=== PATIENT | female | born 1980 | race Two or more races ===

== ENCOUNTER 2018-09-06 03:36 | Emergency (ER) | payer OTHER ==
--- NOTE | 2018-09-06 04:04 | ER ---
Nurse's Notes [facility] Name: Adela Sosa Age: 38 yrs Sex: Female : 1980 Arrival Date: 09/06/2018 Time: 03:41 Bed 8 Private MD: Diagnosis: Cough;Acute upper respiratory infection, unspecified;Acute pharyngitis Presentation: 09/06 03:48 Presenting complaint: Patient states: I have had a cough for about 6 days. Transition ed1 of care: patient was not received from another setting of care. Onset of symptoms was August 29, 2018. Risk Assessment: Do you want to hurt yourself or someone else? Patient reports no desire to harm self or others. Initial Sepsis Screen: Does the patient meet any 2 criteria? No. Patient's initial sepsis screen is negative. Does the patient have a suspected source of infection? No. Patient's initial sepsis screen is negative. Care prior to arrival: None. 03:48 Method Of Arrival: Ambulatory ed1 03:48 Acuity: RIVKA 3 ed1 Triage Assessment: 03:49 General: Appears uncomfortable, Behavior is calm, cooperative. Pain: Complains of pain ed1 in throat Pain does not radiate. Pain currently is 5 out of 10 on a pain scale. Quality of pain is described as burning, Pain began 2-3 days ago. Is intermittent, Aggravated by coughing. EENT: Oral mucosa is moist. Throat is reddened. Neuro: Level of Consciousness is awake, alert, obeys commands, Oriented to person, place, time, situation. Cardiovascular: Denies chest pain, Heart tones S1 S2 present. Respiratory: Reports cough that is non-productive, hacking, persistent Airway is patent Respiratory effort is even, unlabored, Respiratory pattern is regular, symmetrical, Breath sounds are clear bilaterally. Onset: The symptoms/episode began/occurred about 6 days ago, Denies shortness of breath. GI: Abdomen is flat, non-distended, Bowel sounds present X 4 quads. Abd is soft and non tender X 4 quads. Patient currently denies diarrhea, nausea, vomiting. : No signs and/or symptoms were reported regarding the genitourinary system. Derm: Skin is intact, is healthy with good turgor, Skin is dry, Skin is normal, Skin temperature is warm. Musculoskeletal: Circulation, motion, and sensation intact. 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 - Social history:: Smoking status: Patient/guardian denies using tobacco. - Ebola Screening: : Patient negative for fever greater than or equal to 101.5 degrees Fahrenheit, and additional compatible Ebola Virus Disease symptoms Patient denies exposure to infectious person Patient denies travel to an Ebola-affected area in the 21 days before illness onset No symptoms or risks identified at this time. - Family history:: not pertinent. Screenin:53 Abuse screen: Denies threats or abuse. Denies injuries from another. Nutritional ed1 screening: No deficits noted. Tuberculosis screening: No symptoms or risk factors identified. Fall Risk None identified. Assessment: 03:53 General: See triage assessment. ed1 04:29 Reassessment: Patient appears in no apparent distress at this time. No changes from ed1 previously documented assessment. Patient and/or family updated on plan of care and expected duration. Pain level reassessed. Patient is alert, oriented x 3, equal unlabored respirations, skin warm/dry/pink. Vital Signs: 03:49 BP 116 / 96; Pulse 69; Resp 18; Temp 97.9(O); Pulse Ox 100% on R/A; Weight 46.72 kg; ed1 Height 5 ft. 3 in. (160.02 cm); Pain 5/10; 04:29 BP 114 / 76; Pulse 70; Resp 18; Pulse Ox 100% on R/A; Pain 5/10; ed1 03:49 Body Mass Index 18.25 (46.72 kg, 160.02 cm) ed1 ED Course: 03:41 Patient arrived in ED. es 03:44 Linden Castaneda MD is Attending Physician. smita 03:48 Yesenia Stark, FARHAD is Primary Nurse. ed1 03:49 Triage completed. ed1 03:49 Arm band placed on. ed1 03:53 Patient has correct armband on for positive identification. Placed in gown. Bed in low ed1 position. Call light in reach. Side rails up X 1. Adult w/ patient. Pulse ox on. NIBP on. Warm blanket given. 04:29 No provider procedures requiring assistance completed. Patient did not have IV access ed1 during this emergency room visit. Administered Medications: 04:05 Drug: Tussionex Pennkinetic ER 5 ml Route: PO; ed1 04:28 Follow up: Response: No adverse reaction ed1 04:05 Drug: Zithromax 500 mg Route: PO; ed1 04:28 Follow up: Response: No adverse reaction ed1 Outcome: 04:04 Discharge ordered by MD. ordoñez 04:29 Discharged to home ambulatory. ed1 04:29 Condition: good 04:29 Discharge instructions given to patient, Instructed on discharge instructions, follow up and referral plans. medication usage, Demonstrated understanding of instructions, follow-up care, medications, Prescriptions given X 2. 04:30 Patient left the ED. ed1 Signatures: Linden Castaneda MD MD cha Salyer, Edna es Riggs, Erika RN RN ed1
--- NOTE | 2018-09-06 04:04 | EDPHYS ---
Physician Documentation [facility] Name: Adela Sosa Age: 38 yrs Sex: Female : 1980 Arrival Date: 09/06/2018 Time: 03:41 Bed 8 Private MD: ED Physician Linden Castaneda HPI: 09/06 04:00 This 38 yrs old Female presents to ER via Ambulatory with complaints of smita Non-Productive Cough, Painful Cough. 04:00 The patient or guardian reports cough, described as mild. 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 - Social history:: Smoking status: Patient/guardian denies using tobacco. - Ebola Screening: : Patient negative for fever greater than or equal to 101.5 degrees Fahrenheit, and additional compatible Ebola Virus Disease symptoms Patient denies exposure to infectious person Patient denies travel to an Ebola-affected area in the 21 days before illness onset No symptoms or risks identified at this time. - Family history:: not pertinent. ROS: 04:00 Eyes: Negative for injury, pain, redness, and discharge. smita 04:00 ENT: Negative for injury, pain, and discharge, Neck: Negative for injury, pain, and swelling, Cardiovascular: Negative for chest pain, palpitations, and edema, Abdomen/GI: Negative for abdominal pain, nausea, vomiting, diarrhea, and constipation, Back: Negative for injury and pain, : Negative for injury, bleeding, discharge, and swelling, MS/Extremity: Negative for injury and deformity, Skin: Negative for injury, rash, and discoloration, Neuro: Negative for headache, weakness, numbness, tingling, and seizure. 04:00 Constitutional: Positive for 04:00 ENT: Positive for difficulty swallowing, sinus congestion. 04:00 Respiratory: Positive for cough. Exam: 04:00 Constitutional: This is a well developed, well nourished patient who is awake, alert, smita and in no acute distress. Head/Face: Normocephalic, atraumatic. Eyes: Pupils equal round and reactive to light, extra-ocular motions intact. Lids and lashes normal. Conjunctiva and sclera are non-icteric and not injected. Cornea within normal limits. Periorbital areas with no swelling, redness, or edema. Neck: Trachea midline, no thyromegaly or masses palpated, and no cervical lymphadenopathy. Supple, full range of motion without nuchal rigidity, or vertebral point tenderness. No Meningismus. Chest/axilla: Normal chest wall appearance and motion. Nontender with no deformity. No lesions are appreciated. Cardiovascular: Regular rate and rhythm with a normal S1 and S2. No gallops, murmurs, or rubs. Normal PMI, no JVD. No pulse deficits. Respiratory: Lungs have equal breath sounds bilaterally, clear to auscultation and percussion. No rales, rhonchi or wheezes noted. No increased work of breathing, no retractions or nasal flaring. Abdomen/GI: Soft, non-tender, with normal bowel sounds. No distension or tympany. No guarding or rebound. No evidence of tenderness throughout. Back: No spinal tenderness. No costovertebral tenderness. Full range of motion. Skin: Warm, dry with normal turgor. Normal color with no rashes, no lesions, and no evidence of cellulitis. MS/ Extremity: Pulses equal, no cyanosis. Neurovascular intact. Full, normal range of motion. Neuro: Awake and alert, GCS 15, oriented to person, place, time, and situation. Cranial nerves II-XII grossly intact. Motor strength 5/5 in all extremities. Sensory grossly intact. Cerebellar exam normal. Normal gait. Psych: Awake, alert, with orientation to person, place and time. Behavior, mood, and affect are within normal limits. 04:00 ENT: Posterior pharynx: Airway: normal, no evidence of obstruction, Tonsils: with erythema, Uvula: normal, midline, swelling, is not appreciated, erythema, that is mild, exudate, is not appreciated, peritonsillar mass, is not appreciated. Vital Signs: 03:49 BP 116 / 96; Pulse 69; Resp 18; Temp 97.9(O); Pulse Ox 100% on R/A; Weight 46.72 kg; ed1 Height 5 ft. 3 in. (160.02 cm); Pain 5/10; 04:29 BP 114 / 76; Pulse 70; Resp 18; Pulse Ox 100% on R/A; Pain 5/10; ed1 03:49 Body Mass Index 18.25 (46.72 kg, 160.02 cm) ed1 MDM: 03:44 Patient medically screened. [facility] 04:00 Data reviewed: vital signs, nurses notes. [facility] Administered Medications: 04:05 Drug: Tussionex Pennkinetic ER 5 ml Route: PO; ed1 04:28 Follow up: Response: No adverse reaction ed1 04:05 Drug: Zithromax 500 mg Route: PO; ed1 04:28 Follow up: Response: No adverse reaction ed1 Disposition: 09/06/18 04:04 Discharged to Home. Impression: Cough, Acute upper respiratory infection, unspecified, Acute pharyngitis. - Condition is Stable. - Discharge Instructions: Cool Mist Vaporizer, Upper Respiratory Infection, Adult, [id number], Cough, Adult, [id number], Cough, Adult. - Prescriptions for Zithromax Z- Adán 250 mg Oral Tablet - take 1 tablet by ORAL route as directed for 5 days Day 1 - take two (2) tablets one time. Day 2, 3, 4 , 5 take one (1) tablet once daily.; 6 tablet. Guaifenesin AC 10- 100 mg/5 mL Oral Liquid - take 10 milliliters by ORAL route every 4 hours As needed; 160 milliliter. - Medication Reconciliation Form, Thank You Letter, Antibiotic Education, Prescription Opioid Use form. - Follow up: Private Physician; When: 2 - 3 days; Reason: Recheck today's complaints, Continuance of care, Re-evaluation by your physician. - Problem is new. - Symptoms have improved. Signatures: Linden Castaneda MD MD cha Riggs, Erika RN RN ed1 Corrections: (The following items were deleted from the chart) 04:05 04:04 09/06/2018 04:04 Discharged to Home. Impression: Cough; Acute upper respiratory smita infection, unspecified. Condition is Stable. Forms are Medication Reconciliation Form, Thank You Letter, Antibiotic Education, Prescription Opioid Use. Follow up: Private Physician; When: 2 - 3 days; Reason: Recheck today's complaints, Continuance of care, Re-evaluation by your physician. Problem is new. Symptoms have improved. [facility] 04:30 04:05 09/06/2018 04:04 Discharged to Home. Impression: Cough; Acute upper respiratory ed1 infection, unspecified; Acute pharyngitis. Condition is Stable. Discharge Instructions: Cool Mist Vaporizer, Upper Respiratory Infection, Adult, Zgmq-td-Diom, Cough, Adult, [id number]-[id number], Cough, Adult. Prescriptions for Zithromax Z-Adán 250 mg Oral Tablet - take 1 tablet by ORAL route as directed for 5 days Day 1 - take two (2) tablets one time. Day 2, 3, 4 , 5 take one (1) tablet once daily.; 6 tablet, Guaifenesin AC 10-100 mg/5 mL Oral Liquid - take 10 milliliters by ORAL route every 4 hours As needed; 160 milliliter. and Forms are Medication Reconciliation Form, Thank You Letter, Antibiotic Education, Prescription Opioid Use. Follow up: Private Physician; When: 2 - 3 days; Reason: Recheck today's complaints, Continuance of care, Re-evaluation by your physician. Problem is new. Symptoms have improved. [facility]
[2018-09-06] MEDS ORDERED: HYDROCODONE/CHLORPHEN 5 ML/OSYR ONE (04:12)
[2018-09-06] MEDS ORDERED: AZITHROMYCIN 250 MG TAB ONE (04:12)
== END 2018-09-06 04:30 | disposition home or self-care (01) ==
LOC: ER 03:36
DX: J06.9 Acute upper respiratory infection, unspecified (principal); J02.9 Acute pharyngitis, unspecified
CPT/HCPCS: 99283

== ENCOUNTER 2019-08-02 03:48 | Emergency (ER) | payer OTHER ==
[2019-08-02] MEDS ORDERED: KETOROLAC 30 MG/ML INJ ONE (04:34)
[2019-08-02 05:08] LABS: Basophils % 0.5 % (0-1.3); Hematocrit 41.2 % (36.0-45.0); Lymphocytes % 41.8 % (15.3-44.8); MPV 10.7 fL (7.6-11.3); RBC Red Blood Cell Count 4.46 M/uL (3.86-4.86)
[2019-08-02 05:13] LABS: Protime INR 0.91
[2019-08-02 05:22] LABS: ALT/SGPT 25 U/L (12-78); AST/SGOT 24 U/L (15-37); Albumin 3.9 g/dL (3.4-5.0); Alkaline Phosphatase 41 U/L (45-117); BUN Blood Urea Nitrogen 13 mg/dL (7-18); Bicarbonate 30 mmol/L (21-32); Bilirubin Direct 0.1 mg/dL (0-0.2); Bilirubin Total 0.3 mg/dL (0.2-1.0); Glucose Level 98 mg/dL (74-106); Magnesium 2.4 mg/dL (1.8-2.4); NT PRO-BNP 47 pg/mL (<125); Potassium 4.7 mmol/L (3.5-5.1); Protein, Total 7.5 g/dL (6.4-8.2); Sodium Level 141 mmol/L (136-145); Troponin (Emerg Dept Use Only) < 0.02 ng/mL (0.0-0.045)
--- NOTE | 2019-08-02 06:06 | ER ---
Nurse's Notes [facility] Name: Adela Sosa Age: 39 yrs Sex: Female : 1980 Arrival Date: 08/02/2019 Time: 03:51 Bed 8 Private MD: Diagnosis: Muscle spasm of back;Other muscle spasm;Strain of muscle and tendon of thorax Presentation: 08/02 04:05 Presenting complaint: Patient states: I started to have shoulder pain today and rr5 headache, for my chest pain it started 2 days ago and for my neck and back pain it started last week. I am taking ibuprofen but it did not relieved the pain. 04:05 Transition of care: patient was not received from another setting of care. Onset of rr5 symptoms was August 02, 2019. Risk Assessment: Do you want to hurt yourself or someone else? Patient reports no desire to harm self or others. Initial Sepsis Screen: Does the patient meet any 2 criteria? No. Patient's initial sepsis screen is negative. Does the patient have a suspected source of infection? No. Patient's initial sepsis screen is negative. Care prior to arrival: Medication(s) given: Motrin. 04:05 Method Of Arrival: Ambulatory rr5 04:05 Acuity: RIVKA 3 rr5 Triage Assessment: 04:05 Headache History: The patient has had previous headaches and this one is more severe rr5 than previous episodes. Pain: Pain began gradually, Also complains of no other associated symptoms. 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 - Social history:: Smoking status: Patient/guardian denies using tobacco, Patient uses alcohol, occasionally. Patient/guardian denies using street drugs. - Ebola Screening: : Patient negative for fever greater than or equal to 101.5 degrees Fahrenheit, and additional compatible Ebola Virus Disease symptoms Patient denies exposure to infectious person Patient denies travel to an Ebola-affected area in the 21 days before illness onset. Screenin:18 Abuse screen: Denies threats or abuse. Denies injuries from another. Nutritional rr5 screening: No deficits noted. Tuberculosis screening: No symptoms or risk factors identified. Fall Risk IV access (20 points). Total Bhatti Fall Scale indicates No Risk (0-24 pts). Assessment: 04:05 General: Appears in no apparent distress. comfortable, Behavior is calm, cooperative, rr5 appropriate for age. 04:05 Pain: Complains of pain in head, neck, shoulder, chest, back Pain does not radiate. rr5 Pain currently is 8 out of 10 on a pain scale. Neuro: Level of Consciousness is awake, alert, obeys commands, Oriented to person, place, time, situation, Appropriate for age Reports headache in entire. Cardiovascular: Reports chest pain, Capillary refill < 3 seconds Patient's skin is warm and dry. Respiratory: Airway is patent Respiratory effort is even, unlabored, Respiratory pattern is regular, symmetrical. GI: No signs and/or symptoms were reported involving the gastrointestinal system. : Denies burning with urination, pain. EENT: No signs and/or symptoms were reported regarding the EENT system. Derm: Skin is intact, is healthy with good turgor, Skin temperature is warm. Musculoskeletal: Capillary refill < 3 seconds, Reports pain in neck, shoulrder, chest, back. 05:00 Reassessment: Patient appears in no apparent distress at this time. Patient is alert, rr5 oriented x 3, equal unlabored respirations, skin warm/dry/pink. awaiting for result. 05:58 Reassessment: Patient appears in no apparent distress at this time. Patient and/or rr5 family updated on plan of care and expected duration. Pain level reassessed. Patient is alert, oriented x 3, equal unlabored respirations, skin warm/dry/pink. resting on bed, breathing spontaneously at room air. vitally stable. Patient states symptoms have improved. 05:58 Pain: Pain currently is 6 out of 10 on a pain scale. rr5 06:12 Reassessment: Patient appears in no apparent distress at this time. Patient is alert, rr5 oriented x 3, equal unlabored respirations, skin warm/dry/pink. discharge instruction given and explained without complaints made,verbalized understanding. Vital Signs: 04:05 BP 108 / 78; Pulse 71; Resp 16; Temp 97.6; Pulse Ox 100% ; Weight 46.72 kg; Height 5 rr5 ft. 3 in. (160.02 cm); Pain 8/10; 05:00 BP 111 / 62; Pulse 66; Resp 18; Pulse Ox 98% ; rr5 05:59 BP 109 / 68; Pulse 60; Resp 17; Pulse Ox 99% ; Pain 6/10; rr5 06:12 BP 105 / 76; Pulse 66; Resp 19; Temp 97.6; Pulse Ox 99% ; rr5 04:05 Body Mass Index 18.25 (46.72 kg, 160.02 cm) rr5 ED Course: 03:51 Patient arrived in ED. es 03:51 Sd Gonzalez, RN is Primary Nurse. rr5 04:05 Arm band placed on. rr5 04:08 Patient has correct armband on for positive identification. Placed in gown. Bed in low rr5 position. Call light in reach. credit assessment analyst on. Pulse ox on. NIBP on. 04:13 Triage completed. rr5 04:14 Emmett Yun MD is Attending Physician. tw4 04:30 XRAY Chest (1 view) In Process Unspecified. EDMS 04:38 Inserted saline lock: 22 gauge in right antecubital area, using aseptic technique. rr5 Blood collected. 06:13 No provider procedures requiring assistance completed. IV discontinued, intact, rr5 bleeding controlled, No redness/swelling at site. Pressure dressing applied. Administered Medications: 04:40 Drug: TORadol 30 mg Route: IVP; Site: right antecubital; rr5 05:10 Follow up: Response: Pain is decreased rr5 Outcome: 06:05 Discharge ordered by . tw4 06:13 Discharged to home ambulatory, with family. rr5 06:13 Condition: stable 06:13 Discharge instructions given to patient, Instructed on discharge instructions, follow up and referral plans. medication usage, Demonstrated understanding of instructions, follow-up care, medications, Prescriptions given X 1. 06:14 Patient left the ED. rr5 Signatures: Dispatcher [employer]CO Jenny June Terrence, MD MD tw4 Sd Gonzalez, RN RN rr5
--- NOTE | 2019-08-02 06:06 | EDPHYS ---
Physician Documentation [facility] Name: Adela Sosa Age: 39 yrs Sex: Female : 1980 Arrival Date: 08/02/2019 Time: 03:51 Bed 8 Private MD: ED Physician Emmett Yun HPI: 08/02 05:51 This 39 yrs old Female presents to ER via Ambulatory with complaints of Headache, Neck tw4 Pain, <24hrs Old, Shoulder Pain, Shortness Of Breath, Chest Pain. 05:51 The patient presents with pain that is acute. The symptoms are located in the low back. tw4 Onset: The symptoms/episode began/occurred today. The pain does not radiate. Severity of symptoms: At their worst the symptoms were mild, in the emergency department the symptoms are unchanged. The patient has not experienced similar symptoms in the past. 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 - Social history:: Smoking status: Patient/guardian denies using tobacco, Patient uses alcohol, occasionally. Patient/guardian denies using street drugs. - Ebola Screening: : Patient negative for fever greater than or equal to 101.5 degrees Fahrenheit, and additional compatible Ebola Virus Disease symptoms Patient denies exposure to infectious person Patient denies travel to an Ebola-affected area in the 21 days before illness onset. ROS: 05:51 Constitutional: Negative for fever, chills, and weight loss, Eyes: Negative for injury, tw4 pain, redness, and discharge, Respiratory: Negative for shortness of breath, cough, wheezing, and pleuritic chest pain, Abdomen/GI: Negative for abdominal pain, nausea, vomiting, diarrhea, and constipation, MS/Extremity: Negative for injury and deformity, Skin: Negative for injury, rash, and discoloration, Neuro: Negative for headache, weakness, numbness, tingling, and seizure. 05:51 Cardiovascular: Positive for chest pain, Negative for edema, orthopnea, palpitations, paroxysmal nocturnal dyspnea. 05:51 Back: Positive for Exam: 05:51 Constitutional: This is a well developed, well nourished patient who is awake, alert, tw4 and in no acute distress. Head/Face: Normocephalic, atraumatic. Eyes: Pupils equal round and reactive to light, extra-ocular motions intact. Lids and lashes normal. Conjunctiva and sclera are non-icteric and not injected. Cornea within normal limits. Periorbital areas with no swelling, redness, or edema. 05:51 Cardiovascular: Regular rate and rhythm with a normal S1 and S2. No gallops, murmurs, or rubs. Normal PMI, no JVD. No pulse deficits. Respiratory: Lungs have equal breath sounds bilaterally, clear to auscultation and percussion. No rales, rhonchi or wheezes noted. No increased work of breathing, no retractions or nasal flaring. Abdomen/GI: Soft, non-tender, with normal bowel sounds. No distension or tympany. No guarding or rebound. No evidence of tenderness throughout. 05:51 Chest/axilla: Inspection: normal, Palpation: tenderness, that is moderate, that partially reproduces the patient's complaints. 05:51 Back: pain, that is mild, of the left scapular area and right scapular area, ROM is decreased. Vital Signs: 04:05 BP 108 / 78; Pulse 71; Resp 16; Temp 97.6; Pulse Ox 100% ; Weight 46.72 kg; Height 5 rr5 ft. 3 in. (160.02 cm); Pain 8/10; 05:00 BP 111 / 62; Pulse 66; Resp 18; Pulse Ox 98% ; rr5 05:59 BP 109 / 68; Pulse 60; Resp 17; Pulse Ox 99% ; Pain 6/10; rr5 06:12 BP 105 / 76; Pulse 66; Resp 19; Temp 97.6; Pulse Ox 99% ; rr5 04:05 Body Mass Index 18.25 (46.72 kg, 160.02 cm) rr5 MDM: 04:14 Patient medically screened. 08/02 04:09 Order name: Basic Metabolic Panel; Complete Time: 05:55 bb 08/02 05:55 Interpretation: Normal except: CL 108; GFR 72. 08/02 04:09 Order name: CBC with Diff; Complete Time: 05:55 08/02 05:55 Interpretation: Within normal limits. tw08/02 04:09 Order name: LFT's; Complete Time: 05:55 08/02 05:55 Interpretation: Normal except: ALK 41; GLOB 3.6. tw4 08/02 04:09 Order name: Magnesium; Complete Time: 05:55 08/02 05:55 Interpretation: Within normal limits: MG 2.4. 08/02 04:09 Order name: NT PRO-BNP; Complete Time: 05:55 08/02 05:55 Interpretation: Within normal limits: NT PRO-BNP 47. 08/02 04:09 Order name: PT-INR 08/02 04:09 Order name: Troponin (emerg Dept Use Only); Complete Time: 05:55 08/02 05:55 Interpretation: TROPED < 0.02. tw08/02 04:09 Order name: XRAY Chest (1 view) 08/02 04:09 Order name: EKG; Complete Time: 04:11 08/02 04:09 Order name: Cardiac monitoring; Complete Time: 04:19 08/02 04:09 Order name: EKG - Nurse/Tech; Complete Time: 04:19 08/02 04:09 Order name: IV Saline Lock; Complete Time: 04:41 08/02 04:09 Order name: Labs collected and sent; Complete Time: 04:41 08/02 04:09 Order name: O2 Per Protocol; Complete Time: 04:19 08/02 04:09 Order name: O2 Sat Monitoring; Complete Time: 04:19 bb EC:51 Rate is 67 beats/min. Rhythm is regular. QRS [place] is Normal. [place] interval is normal. QRS tw4 interval is normal. QT interval is normal. No Q waves. No ST changes noted. Clinical impression: Normal ECG. Interpreted by me. Reviewed by me. Administered Medications: 04:40 Drug: TORadol 30 mg Route: IVP; Site: right antecubital; rr5 05:10 Follow up: Response: Pain is decreased rr5 Disposition: 08/02/19 06:05 Discharged to Home. Impression: Muscle spasm of back, Other muscle spasm, Strain of muscle and tendon of thorax. - Condition is Stable. - Discharge Instructions: Chest Wall Pain, Muscle Cramps and Spasms. - Prescriptions for Ibuprofen 800 mg Oral Tablet - take 1 tablet by ORAL route every 8 hours As needed take with food; 30 tablet. - Medication Reconciliation Form, Thank You Letter, Antibiotic Education, Prescription Opioid Use form. - Follow up: Private Physician; When: Upon discharge from the Emergency Department; Reason: Recheck today's complaints, Continuance of care. - Problem is new. - Symptoms have improved. Signatures: Dispatcher [employer] Tammy Avila RN RN Emmett Ramirez MD MD tw4 Sd Gonzalez RN RN rr5 Corrections: (The following items were deleted from the chart) 06:14 06:05 08/02/2019 06:05 Discharged to Home. Impression: Muscle spasm of back; Other rr5 muscle spasm; Strain of muscle and tendon of thorax. Condition is Stable. Forms are Medication Reconciliation Form, Thank You Letter, Antibiotic Education, Prescription Opioid Use. Follow up: Private Physician; When: Upon discharge from the Emergency Department; Reason: Recheck today's complaints, Continuance of care. Problem is new. Symptoms have improved. tw4
[2019-08-02 06:19] VITALS: TEMP 97.6
[2019-08-02 06:22] VITALS: O2SAT 99
[2019-08-02 06:23] VITALS: BP 105/76
--- NOTE | 2019-08-02 09:32 | RAD REPORT ---
EXAM DESCRIPTION: RAD - Chest Single View - 08/02/2019 4:31 am CLINICAL HISTORY: Chest pain, shoulder pain COMPARISON: May 2015 TECHNIQUE: AP portable chest image was obtained 0426 hours . FINDINGS: No peripheral mass or consolidation. Lung markings are similar to comparison. Heart and va sculature are normal. No measurable pleural effusion and no pneumothorax. No acute bony abnormality s een. No acute aortic findings suspected. IMPRESSION: No acute cardiopulmonary process.
--- NOTE | 2019-08-03 11:46 | EKG ---
Test Date: 2019-08-02 Test Time: 04:07:05 Admissions [address] Attendant: RR MEASUREMENT RESULTS: Intervals: Rate: 67 OR: 142 QRSD: 84 QT: 418 QTc: 441 [place]: P: 18 OR: 142 QRS: 70 T: 29 INTERPRETIVE STATEMENTS: Normal sinus rhythm Normal ECG No previous ECG available for comparison Electronically Signed On 08-03-19 11:42:17 BARK GRINDER by Faisal Ronquillo
== END 2019-08-02 06:14 | disposition home or self-care (01) ==
LOC: ER 03:48
DX: M62.830 Muscle spasm of back (principal); S29.019A Strain of muscle and tendon of unspecified wall of thorax, initial encounter; M62.838 Other muscle spasm; X58.XXXA Exposure to other specified factors, initial encounter; Y93.9 Activity, unspecified; Y92.9 Unspecified place or not applicable; Z98.82 Breast implant status
CPT/HCPCS: 36415; 71045; 80048; 80076; 83735; 83880; 84484; 85025; 85610; 93005; 96374; 99284

== ENCOUNTER 2020-01-31 02:35 | Emergency (ER) | payer OTHER ==
--- NOTE | 2020-01-31 03:26 | EDPHYS ---
Physician Documentation [facility] Name: Adela Sosa Age: 40 yrs Sex: Female : 1980 Arrival Date: 01/31/2020 Time: 02:38 Bed 7 Private MD: ED Physician Brodie Valdez HPI: 01/30 03:26 This 40 yrs old Female presents to ER via Ambulatory with complaints of Laceration - mh7 Finger. 03:26 The patient or guardian reports a laceration, clean, 2 cm(s). The complaints affect the mh7 left thumb-dorsal aspect. Context: The problem was sustained at home, resulted from a penetrating injury, by a knife, while cutting fruit. Onset: The symptoms/episode began/occurred just prior to arrival, today. Modifying factors: The symptoms are alleviated by nothing, the symptoms are aggravated by nothing. Associated signs and symptoms: Pertinent negatives: cyanosis distally, decreased sensation distally, fever, nausea, numbness distally, tingling distally, vomiting. Severity of symptoms: At their worst the symptoms were mild, earlier today, in the emergency department the symptoms are unchanged. Historical: - Allergies: 03:15 No Known Allergies; sg - PMHx: 03:15 None; sg - PSHx: 03:15 breast augmentation; rhinoplasty; sg - Immunization history:: Adult Immunizations up to date, Last tetanus immunization: < 5 years ago. - Social history:: Smoking status: Patient denies any tobacco usage or history of. ROS: 03:26 Constitutional: Negative for fever, chills, and weight loss, Eyes: Negative for injury, mh7 pain, redness, and discharge, ENT: Negative for injury, pain, and discharge, Neck: Negative for injury, pain, and swelling, Cardiovascular: Negative for chest pain, palpitations, and edema, Respiratory: Negative for shortness of breath, cough, wheezing, and pleuritic chest pain, Abdomen/GI: Negative for abdominal pain, nausea, vomiting, diarrhea, and constipation, Back: Negative for injury and pain, : Negative for injury, bleeding, discharge, and swelling, Neuro: Negative for headache, weakness, numbness, tingling, and seizure, Psych: Negative for depression, anxiety, suicide ideation, homicidal ideation, and hallucinations, Allergy/Immunology: Negative for hives, rash, and allergies, Endocrine: Negative for neck swelling, polydipsia, polyuria, polyphagia, and marked weight changes, Hematologic/Lymphatic: Negative for swollen nodes, abnormal bleeding, and unusual bruising. Exam: 03:26 Constitutional: This is a well developed, well nourished patient who is awake, alert, mh7 and in no acute distress. Head/Face: Normocephalic, atraumatic. Neck: Trachea midline, no thyromegaly or masses palpated, and no cervical lymphadenopathy. Supple, full range of motion without nuchal rigidity, or vertebral point tenderness. No Meningismus. Chest/axilla: Normal chest wall appearance and motion. Nontender with no deformity. No lesions are appreciated. Cardiovascular: Regular rate and rhythm with a normal S1 and S2. No gallops, murmurs, or rubs. Normal PMI, no JVD. No pulse deficits. Respiratory: Lungs have equal breath sounds bilaterally, clear to auscultation and percussion. No rales, rhonchi or wheezes noted. No increased work of breathing, no retractions or nasal flaring. Abdomen/GI: Soft, non-tender, with normal bowel sounds. No distension or tympany. No guarding or rebound. No evidence of tenderness throughout. 03:26 Neuro: Awake and alert, GCS 15, oriented to person, place, time, and situation. Cranial nerves II-XII grossly intact. Motor strength 5/5 in all extremities. Sensory grossly intact. Cerebellar exam normal. Normal gait. Psych: Awake, alert, with orientation to person, place and time. Behavior, mood, and affect are within normal limits. 03:26 Musculoskeletal/extremity: Extremities: noted in the dorasl left thumb: laceration, ROM: intact in all extremities, Circulation is intact in all extremities. Sensation intact. Compartment Syndrome exam of affected extremity: is normal. no pain, no numbness, no tingling, no sensation deficit, no palor, no weak pulses, Tendon exam: specific tendon testing normal through active and passive range of motion 03:26 Skin: injury, laceration(s), the wound is approximately 2 cm(s), with a depth of 0.1 cm(s), of the left thumb-dorsal aspect, that can be described as clean, no foreign body, linear, superficial. Vital Signs: 03:15 BP 110 / 54; Pulse 77; Resp 16; Temp 98.4; Pulse Ox 100% on R/A; rv MDM: 03:18 Patient medically screened. 7 03:23 Differential diagnosis: contusion, abrasion, laceration. Data reviewed: vital signs, 7 nurses notes. Administered Medications: No medications were administered Disposition: 01/31/20 03:25 Discharged to Home. Impression: Left Thumb Laceration. - Condition is Stable. - Discharge Instructions: Laceration Care, Adult, [id number]. - Medication Reconciliation Form, Thank You Letter, Antibiotic Education, Prescription Opioid Use form. - Follow up: Private Physician; When: 1 - 2 days; Reason: Worsening of condition, Recheck today's complaints, Re-evaluation by your physician. - Problem is new. - Symptoms have improved. Signatures: Reza Luis RN RN sg Brodie Valdez MD MD [facility] Corrections: (The following items were deleted from the chart) 03:37 03:25 01/31/2020 03:25 Discharged to Home. Impression: Left Thumb Laceration. Condition sg is Stable. Forms are Medication Reconciliation Form, Thank You Letter, Antibiotic Education, Prescription Opioid Use. Follow up: Private Physician; When: 1 - 2 days; Reason: Worsening of condition, Recheck today's complaints, Re-evaluation by your physician. Problem is new. Symptoms have improved. [facility]
--- NOTE | 2020-01-31 03:26 | ER ---
Nurse's Notes [facility] Name: Adela Sosa Age: 40 yrs Sex: Female : 1980 Arrival Date: 01/31/2020 Time: 02:38 Bed 7 Private MD: Diagnosis: Left Thumb Laceration Presentation: 01/30 03:10 Chief complaint: Patient states: Was using a meat juan when I smashed or cut my left sg thumb, pt reports using herbal remedy to control bleeding and a pressure dressing has been applied at this time. Coronavirus screen: Proceed with normal triage. Ebola Screen: Patient negative for fever greater than or equal to 101.5 degrees Fahrenheit, and additional compatible Ebola Virus Disease symptoms Patient denies exposure to infectious person. Patient denies travel to an Ebola-affected area in the 21 days before illness onset. No symptoms or risks identified at this time. Initial Sepsis Screen: Does the patient meet any 2 criteria? No. Patient's initial sepsis screen is negative. Does the patient have a suspected source of infection? No. Patient's initial sepsis screen is negative. Risk Assessment: Do you want to hurt yourself or someone else? Patient reports no desire to harm self or others. Onset of symptoms was January 31, 2020. Care prior to arrival: None. Transition of care: patient was not received from another setting of care. 03:10 Method Of Arrival: Ambulatory sg 03:10 Acuity: RIVKA 4 sg Historical: - Allergies: 03:15 No Known Allergies; sg - PMHx: 03:15 None; sg - PSHx: 03:15 breast augmentation; rhinoplasty; sg - Immunization history:: Adult Immunizations up to date, Last tetanus immunization: < 5 years ago. - Social history:: Smoking status: Patient denies any tobacco usage or history of. Vital Signs: 03:15 BP 110 / 54; Pulse 77; Resp 16; Temp 98.4; Pulse Ox 100% on R/A; rv ED Course: 02:38 Patient arrived in ED. ds1 03:02 Brodie Valdez MD is Attending Physician. mh7 03:08 Eusebio Keenan RN is Primary Nurse. rv 03:10 Arm band placed on. sg 03:15 Triage completed. sg Administered Medications: No medications were administered Outcome: 03:25 Discharge ordered by MD. morales 03:37 Patient left the ED. sg Signatures: Reza Luis RN RN sg Breann Joyce ds1 Eusebio Keenan RN RN rv Holmes, Maurice, MD MD mh7
[2020-01-31 03:57] VITALS: BP 110/54; TEMP 98.4; O2SAT 100
== END 2020-01-31 03:37 | disposition home or self-care (01) ==
LOC: ER 02:35
DX: S61.012A Laceration without foreign body of left thumb without damage to nail, initial encounter (principal); W26.0XXA Contact with knife, initial encounter; Y93.G1 Activity, food preparation and clean up; Y92.009 Unspecified place in unspecified non-institutional (private) residence as the place of occurrence of the external cause; Z98.82 Breast implant status
CPT/HCPCS: 99281

== ENCOUNTER 2022-05-21 22:01 | Emergency (ER) | payer OTHER ==
[2022-05-21] MEDS ORDERED: AMOX/K CLAV 875 MG TAB ONE (22:15)
[2022-05-21] MEDS ORDERED: TETANUS & DIPHTHERIA TOX,ADULT 0.5 ML VIAL ONE (22:15)
--- NOTE | 2022-05-21 22:23 | ER ---
Nurse's Notes [facility] Name: Adela Sosa Age: 42 yrs Sex: Female : 1980 Arrival Date: 05/21/2022 Time: 22:03 Bed 12 Private MD: Diagnosis: bitten by raccoon Presentation: 05/21 22:12 Chief complaint: Bit by raccoon in right index finger. Coronavirus screen: At this hb time, the client does not indicate any symptoms associated with coronavirus-19. Ebola Screen: No symptoms or risks identified at this time. Initial Sepsis Screen: Does the patient meet any 2 criteria? No. Patient's initial sepsis screen is negative. Does the patient have a suspected source of infection? No. Patient's initial sepsis screen is negative. Risk Assessment: Do you want to hurt yourself or someone else? Patient reports no desire to harm self or others. Onset of symptoms was May 21, 2022. 22:12 Method Of Arrival: Ambulatory hb 22:12 Acuity: RIVKA 4 hb Triage Assessment: 22:13 Bite description: bite sustained to palmar aspect of distal phalanx of right index hb finger by a raccoon animal information: vaccination(s) is unknown. General: Appears in no apparent distress. Behavior is calm, cooperative. Pain: Pain currently is 4 out of 10 on a pain scale. Neuro: Level of Consciousness is awake, alert, obeys commands, Oriented to person, place, time, situation. Cardiovascular: Patient's skin is warm and dry. Respiratory: Respiratory effort is even, unlabored, Respiratory pattern is regular, symmetrical. Historical: - Allergies: 22:13 No Known Allergies; hb - Home Meds: 22:13 None [Active]; hb - PMHx: 22:13 None; hb - PSHx: 22:13 None; hb - Immunization history:: Adult Immunizations up to date, Last tetanus immunization: unknown. - Social history:: Smoking status: Patient denies any tobacco usage or history of. Screenin:14 Abuse screen: Denies threats or abuse. Denies injuries from another. Nutritional hb screening: No deficits noted. Tuberculosis screening: No symptoms or risk factors identified. Fall Risk None identified. Assessment: 22:14 General: SEE TRIAGE ASSESSMENT. hb 22:24 Reassessment: [employer] notified of incident, unable to take report without location of hb incident, pt unable to recall location or road where incident occurred. Vital Signs: 22:12 BP 112 / 91; Pulse 87; Resp 16; Temp 98.2; Pulse Ox 97% on R/A; Weight 52.62 kg; Height hb 5 ft. 4 in. (162.56 cm); Pain 4/10; 22:12 Body Mass Index 19.91 (52.62 kg, 162.56 cm) hb ED Course: 22:03 Patient arrived in ED. ag3 22:05 Anton[facility] Hardwick [facility]C [facility] kb 22:05 Brett Andre DO is Attending Physician. kb 22:11 Damaris Romero, RN is Primary Nurse. hb 22:12 Triage completed. hb 22:13 Arm band placed on. hb 22:14 Patient has correct armband on for positive identification. hb 22:14 No provider procedures requiring assistance completed. Patient did not have IV access hb during this emergency room visit. Administered Medications: 22:19 Drug: Tetanus-Diphtheria Toxoid Adult 0.5 ml {Health Information Coder: [employer]. Exp: hb 12/10/2023. Lot #: [id number]. } Route: IM; Site: left deltoid; 22:19 Drug: Augmentin (Amoxicillin-Clavulanate) 875 mg Route: PO; hb Medication: 22:14 Vaccine Information Statement (VIS) provided today. Questions and/or concerns hb addressed. VIS edition date: May 21, 2022. Outcome: 22:23 Discharge ordered by . kb 22:32 Discharged to home ambulatory. hb 22:32 Condition: stable 22:32 Discharge instructions given to patient, Instructed on discharge instructions, follow up and referral plans. medication usage, Demonstrated understanding of instructions, follow-up care, medications, Prescriptions given X 1. 22:32 Patient left the ED. hb Signatures: Antonina Hardwick FNP-C FNP-Damaris Burns, RN RN Shama Lawrence ag3
--- NOTE | 2022-05-21 22:23 | EDPHYS ---
Physician Documentation [facility] Name: Adela Sosa Age: 42 yrs Sex: Female : 1980 Arrival Date: 05/21/2022 Time: 22:03 Bed 12 Private MD: ED Physician Brett Andre HPI: 05/21 23:22 This 42 yrs old Female presents to ER via Ambulatory with complaints of Animal Bite, kb Raccoon. 23:22 The patient was bitten on the palmar aspect of distal phalanx of right index finger, by kb a raccoon while tending to the injured animal, outdoors. Onset: The symptoms/episode began/occurred just prior to arrival. Animal information: Patient/Caregiver unable to provide information related to the animal. Secondary to the bite the patient reports an abrasion. Associated signs and symptoms: The patient has no apparent associated signs or symptoms. Severity of symptoms: At their worst the symptoms were very mild, in the emergency department the symptoms are unchanged. The patient has not experienced similar symptoms in the past. The patient has not recently seen a physician. Patient states she accidentally had a raccoon with her car, got out to check on the animal and move it to the side of the road. States she animal bit her when she moved it. . Historical: - Allergies: 22:13 No Known Allergies; hb - Home Meds: 22:13 None [Active]; hb - PMHx: 22:13 None; hb - PSHx: 22:13 None; hb - Immunization history:: Adult Immunizations up to date, Last tetanus immunization: unknown. - Social history:: Smoking status: Patient denies any tobacco usage or history of. ROS: 23:22 Constitutional: Negative for fever, chills, and weight loss. kb 23:22 Skin: Positive for abrasion(s), of the palmar aspect of distal phalanx of right index finger. 23:22 All other systems are negative. Exam: 23:22 Constitutional: This is a well developed, well nourished patient who is awake, alert, kb and in no acute distress. Head/Face: Normocephalic, atraumatic. ENT: Moist Mucous membranes Respiratory: Respirations even and unlabored. No increased work of breathing. Talking in full sentences MS/ Extremity: Pulses equal, no cyanosis. Neurovascular intact. Full, normal range of motion. Neuro: Awake and alert, GCS 15, oriented to person, place, time, and situation. Moves all extremities. Normal gait. 23:22 Skin: injury, bite(s), superficial, of the palmar aspect of distal phalanx of right index finger. Vital Signs: 22:12 BP 112 / 91; Pulse 87; Resp 16; Temp 98.2; Pulse Ox 97% on R/A; Weight 52.62 kg; Height hb 5 ft. 4 in. (162.56 cm); Pain 4/10; 22:12 Body Mass Index 19.91 (52.62 kg, 162.56 cm) hb MDM: 22:06 Patient medically screened. kb 23:21 Data reviewed: vital signs, nurses notes. Data interpreted: Pulse oximetry: on room air kb is 97 %. Interpretation: normal. Counseling: I had a detailed discussion with the patient and/or guardian regarding: the historical points, exam findings, and any diagnostic results supporting the discharge/admit diagnosis, the need for outpatient follow up, a family practitioner, to return to the emergency department if symptoms worsen or persist or if there are any questions or concerns that arise at home. ED course: Patient educated to follow-up with the health department for rabies vaccination. Verbal understanding received. Will call tomorrow.. Administered Medications: 22:19 Drug: Tetanus-Diphtheria Toxoid Adult 0.5 ml {Pegger Dobby Looms: [employer]. Exp: hb 12/10/2023. Lot #: [id number]. } Route: IM; Site: left deltoid; 22:19 Drug: Augmentin (Amoxicillin-Clavulanate) 875 mg Route: PO; hb Disposition: 05/22 01:13 Co-signature as Attending Physician, Brett WHITTINGTON was immediately available onsite ms3 in the emergency department for consultation in the care of the patient. Disposition Summary: 05/21/22 22:23 Discharge Ordered Location: Home Condition: Stable kb Diagnosis - bitten by raccoon abdoul Followup: kb - With: Emergency Department - When: As needed - Reason: Worsening of condition Followup: kb - With: Private Physician - When: 2 - 3 days - Reason: Recheck today's complaints, Continuance of care, Re-evaluation by your physician Discharge Instructions: - Discharge Summary Sheet kb - Animal Bite, Adult, [id number] kb Forms: - Medication Reconciliation Form kb - Thank You Letter kb - Antibiotic Education kb - Prescription Opioid Use kb Prescriptions: - Augmentin 875-125 mg Oral Tablet - take 1 tablet by ORAL route every 12 hours for 10 days; 20 tablet; Refills: 0, kb Product Selection Permitted Signatures: Antonina Hardwick, Damaris Dudley, RN RN hb Brett Andre, DO ms3
[2022-05-21 23:25] VITALS: BP 112/91; TEMP 98.2; O2SAT 97
== END 2022-05-21 22:32 | disposition home or self-care (01) ==
LOC: ER 22:01
DX: S60.470A Other superficial bite of right index finger, initial encounter (principal); W55.51XA Bitten by raccoon, initial encounter; Z23 Encounter for immunization
CPT/HCPCS: 90471; 90714; 99283